=== PATIENT | female | born 1930 | race Caucasian/White ===

== ENCOUNTER 2021-04-21 13:06 | Emergency (ER) | payer OTHER ==
[2021-04-21 14:47] LABS: Absolute Lymphocytes (CBC) 0.7 K/uL (0.7-4.9); Basophils % 0.7 % (0-1.3); Hematocrit 43.9 % (36.0-45.0); Lymphocytes % 13.3 % (15.3-44.8); RBC Red Blood Cell Count 4.76 M/uL (3.86-4.86)
[2021-04-21 14:50] LABS: Protime INR 1.3
[2021-04-21 14:56] LABS: Potassium 3.5 mmol/L (3.5-5.1)
--- NOTE | 2021-04-21 15:08 | RAD REPORT ---
EXAM DESCRIPTION: CT - Head C Spine Cap W Con - 04/21/2021 2:46 pm CLINICAL HISTORY: Trauma, head and neck injury. Chest, abdomen and pelvis pain. fall, on eliquis, chest/abdomen/right hip pain, right weak COMPARISON: Abdomen Pelvis Wo Contrast dated 02/05/2019; Abdomen Pelvis Wo Contrast dated 07/18/20 16 TECHNIQUE: CT head without contrast. CT cervical spine without contrast with coronal and sagittal reformatted images. CT chest, abdomen and pelvis with IV contrast (approximately 100 mL nonionic IV contrast) with ferreira l and sagittal reformatted images of the spine. All CT scans are performed using dose optimization technique as appropriate and may include automated exposure control or mA/KV adjustment according to patient size. FINDINGS: CT HEAD WITHOUT CONTRAST: Multiple hemorrhagic lesions are present in the brain, in the posterior parietal region measuring up to 10 mm, right frontal region measuring 8 mm. Mild edema is seen spanning these lesions. No midline shifts. The paranasal sinuses and mastoids are clear. The calvarium is intact. CT CERVICAL SPINE WITHOUT CONTRAST: No fracture or subluxation. Minimal anterolisthesis of C4 on 5 and C5 on 6 is present. The prevertebr al soft tissues are normal in thickness. CT CHEST, ABDOMEN, PELVIS WITH CONTRAST: The lungs are mildly emphysematous. Areas of irregular scarring is present in both upper lobes24 x 20 mm mass is present in the medial aspect of the superior segment left lower lobe mild adjacent pleura l thickening.Mildly enlarged lymphadenopathy is present in the mediastinum, particularly the pretrach eal space measuring to 16 mm. The liver contains a small low-density lesion in the right lobe anteriorly measuring 6 mm, unchanged. No aggressive liver lesions seen. The spleen, pancreas are within normal limits. Bilateral adrenal m asses are present on the left measuring 18 mm and on the right measuring 20 mm. Atrophic right kidney . Large left renal cysts measuring 9 cm. Significant stool is present in the rectum. Moderate degenerative changes are present throughout the spine and both hips. No acute finding eviden t. IMPRESSION: 24 mm mass medial aspect of the superior segment of the left lower lobe highly suspiciou s for malignancy. Lymphadenopathy is present in pretracheal space. 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 No midline shift. Bilateral adrenal masses are present which could represent adenomas or metastatic disease. The appear mildly larger than on the 2016 comparative study.
--- NOTE | 2021-04-21 15:53 | RAD REPORT ---
EXAM DESCRIPTION: RAD - Femur Right - 04/21/2021 3:28 pm CLINICAL HISTORY: fall, weakness Trauma, pain COMPARISON: No comparisons FINDINGS: Diffuse osteopenia is seen. No acute fracture or dislocation seen. No aggressive marrow le kevin.
--- NOTE | 2021-04-21 16:13 | EDPHYS ---
Physician Documentation [facility] – [place], [place] Name: Sharon Blake Age: 89 yrs Sex: Female : 1930 Arrival Date: 04/21/2021 Time: 13:09 Bed 14 Private MD: ED Physician Ru Rocha HPI: 04/21 13:50 This 89 yrs old Female presents to ER via Unassigned with complaints of Pain rn With Urination - \\T\\ FELL ON RIGHT SIDE. 13:51 Details of fall: The patient fell from an upright position, while standing. Onset: The rn symptoms/episode began/occurred a few days ago. Associated injuries: The patient sustained injury to the chest, injury to the abdomen. Severity of symptoms: At their worst the symptoms were mild, in the emergency department the symptoms are unchanged. The patient has not experienced similar symptoms in the past. The patient has not recently seen a physician. Reports fell a few days ago onto right side of body, denies LOC, not sure if hit head, reports mild pain to chest/abdomen. Also reports since then noticed urinary dribbling which is not normal for her, as well as RLE weakness and "feels ". No fever. . Historical: - Allergies: 15:32 Codeine; tr6 - Home Meds: 15:33 Eliquis 2.5 mg oral tab 1 tab 2 times per day [Active]; Lasix 40 mg Oral tab 1 tab once tr6 daily [Active]; losartan 100 mg oral tab 1 tab once daily [Active]; - PMHx: 15:33 colon cancer; pulmonary embolism; Hypertensive disorder; pulmonary hypertension; tr6 - PSHx: 15:33 colon resection; tr6 - Immunization history:: Client reports receiving the 2nd dose of the Covid vaccine. - Social history:: Smoking status: Patient reports the use of cigarette tobacco products, unknown amount Patient/guardian denies using tobacco, the patient reports quitting approximately 30 years ago. - Family history:: not pertinent. - Hospitalizations: : No recent hospitalization is reported. ROS: 13:51 Constitutional: Negative for fever, chills, and weight loss, Eyes: Negative for injury, rn pain, redness, and discharge, ENT: Negative for injury, pain, and discharge, Neck: Negative for injury, pain, and swelling, Cardiovascular: Negative for palpitations, and edema, Respiratory: Negative for shortness of breath, cough, wheezing, and pleuritic chest pain, Abdomen/GI: Negative for nausea, vomiting, diarrhea, and constipation, Back: Negative for injury and pain, : Negative for bleeding, discharge, and swelling MS/Extremity: Negative for deformity, + RLE weakness Skin: Negative for injury, rash, and discoloration, Neuro: Negative for headache, numbness, tingling, and seizure. Exam: 13:51 Constitutional: This is a well developed, well nourished patient who is awake, alert, rn and in no acute distress. Head/Face: Normocephalic, atraumatic. Eyes: Periorbital areas with no swelling, redness, or edema. Neck: No midline cervical tenderness Chest/axilla: Normal chest wall appearance and motion. Nontender with no deformity. No lesions are appreciated. Cardiovascular: Regular rate and rhythm. No pulse deficits. Respiratory: No increased work of breathing, no retractions or nasal flaring. Abdomen/GI: soft, non-tender, no masses Back: No spinal tenderness. Skin: Warm, dry MS/ Extremity: Pulses equal, no cyanosis. Neuro: Awake and alert, GCS 15, oriented to person, place, time, and situation. Cranial nerves II-XII grossly intact. Motor strength 3+/5 RLE, 5/5 RUE/LUE/LLE. Sensation decreased RLE. Vital Signs: 15:29 BP 144 / 67; Pulse 76; Resp 18; Temp 97.9(O); Pulse Ox 100% ; tr6 17:07 BP 197 / 96; Pulse 80; Resp 20; Pulse Ox 98% on R/A; tr6 19:08 BP 200 / 95; Pulse 83; Resp 20; Pulse Ox 100% on R/A; tr6 MDM: 13:40 Patient medically screened. rn 14:40 ED course: Creatinine 1.4 for radiology, CT to give partial dose for imaging.. rn 16:09 Differential diagnosis: closed head injury, contusion, fracture, spinal hematoma, rn cancer, metastatic lesions, brain hemorrhage. Data reviewed: vital signs, nurses notes, lab test result(s), EKG, radiologic studies, CT scan, and as a result, I will admit patient. Counseling: I had a detailed discussion with the patient and/or guardian regarding: the historical points, exam findings, and any diagnostic results supporting the discharge/admit diagnosis, lab results, radiology results, the need for further work-up and treatment in the hospital, the need to transfer to another facility, for higher level of care, [facility] does not immediately have the required specialist. Response to treatment: the patient's symptoms have mildly improved after treatment, and as a result, I will admit patient. 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 . 16:38 ED course: Spoke with Dr. Franco, states no mass effect or midline shift, so ok to admit rn to floor with neuro consult. . 04/21 13:50 Order name: CBC with Diff; Complete Time: 15:47 rn 04/21 13:50 Order name: Basic Metabolic Panel; Complete Time: 15:47 rn 04/21 13:50 Order name: Protime (+inr); Complete Time: 15:47 rn 04/21 13:50 Order name: Ptt, Activated; Complete Time: 15:47 rn 04/21 13:50 Order name: Urine Microscopic Only; Complete Time: 18:13 rn 04/21 15:40 Order name: CREATININE WHOLE BLOOD; Complete Time: 15:47 EDAZ 04/21 13:50 Order name: CT Traumagram (Head C Spine CAP W Con); Complete Time: 15:47 rn 04/21 13:51 Order name: XRAY Femur RIGHT; Complete Time: 16:00 rn 04/21 14:28 Order name: Lower Extremity Arterial Bilat US; Complete Time: 18:13 rn 04/21 16:11 Order name: Type And Screen sv 04/21 16:11 Order name: Type and Screen EDMS 04/21 16:22 Order name: Urine Dipstick-Ancillary; Complete Time: 16:35 EDMS 04/21 16:58 Order name: COVID-19 : Document "Date of Symptom Onset" if Symptomatic. rn 04/21 13:50 Order name: IV Start; Complete Time: 18:17 rn 04/21 13:50 Order name: EKG; Complete Time: 14:05 rn 04/21 13:50 Order name: EKG - Nurse/Tech; Complete Time: 15:40 rn 04/21 13:50 Order name: Urine Dipstick-Ancillary (obtain specimen); Complete Time: 18:06 rn 04/21 16:11 Order name: Consent for Blood Transfusion; Complete Time: 18:06 sv Administered Medications: 16:22 Drug: Decadron - Dexamethasone 10 mg Route: IVP; Site: right antecubital; tr6 16:22 Drug: NS 0.9% 1000 ml Route: IV; Rate: 1000 ml; Site: right antecubital; tr6 19:07 Drug: Labetalol 5 mg Route: IVP; Site: right antecubital; tr6 Disposition Summary: 04/21/21 16:12 Transfer Ordered Transfer Location: [facility] rn Reason: Higher level of care rn Condition: Fair rn Problem: new rn Symptoms: have improved rn Accepting Physician: (04/21/21 19:10) tr6 Diagnosis - Weakness rn - Dehydration rn - Cerebral edema rn - Nontraumatic intracerebral hemorrhage, multiple localized - With masses rn Forms: - Medication Reconciliation Form rn - SBAR form rn Signatures: Dispatcher [employer] Lisandra Chavis RN RN sv Nieto, Roman, MD MD rn Ramnanan, Tiffany, RN RN tr6 Corrections: (The following items were deleted from the chart) 13:54 13:51 Constitutional: Negative for fever, chills, and weight loss, Eyes: Negative for rn injury, pain, redness, and discharge, ENT: Negative for injury, pain, and discharge, Neck: Negative for injury, pain, and swelling, Cardiovascular: Negative for palpitations, and edema, Respiratory: Negative for shortness of breath, cough, wheezing, and pleuritic chest pain, Abdomen/GI: Negative for nausea, vomiting, diarrhea, and constipation, Back: Negative for injury and pain, MS/Extremity: Negative for deformity, + RLE weakness Skin: Negative for injury, rash, and discoloration, Neuro: Negative for headache, numbness, tingling, and seizure, rn 15:37 15:32 Allergies: No Known Allergies; tr6 tr6 19:10 16:12 rn tr6
--- NOTE | 2021-04-21 16:13 | ER ---
Nurse's Notes [facility] Name: Sharon Blake Age: 89 yrs Sex: Female : 1930 Arrival Date: 04/21/2021 Time: 13:09 Bed 14 Private MD: Diagnosis: Weakness;Dehydration;Cerebral edema;Nontraumatic intracerebral hemorrhage, multiple localized-With masses Presentation: 04/21 15:29 Chief complaint: Patient states: fall on Sunday striking right side. pt unsure if she tr6 hit her head, but denies LOC. pt comes in today with c/o right leg weakness and pain. pt unable to move right leg at all. c/o moments of urinary incontinence since fall. also pt has noticed that b/l feet turn purple while sitting upright. pt states this is not her normal. this has happened since the fall. Coronavirus screen: At this time, unable to obtain information related to travel outside the [place] Ebola Screen: No symptoms or risks identified at this time. Initial Sepsis Screen: Does the patient meet any 2 criteria? No. Patient's initial sepsis screen is negative. Does the patient have a suspected source of infection? No. Patient's initial sepsis screen is negative. Risk Assessment: Do you want to hurt yourself or someone else? Patient reports no desire to harm self or others. 15:29 Method Of Arrival: Wheelchair tr6 15:29 Acuity: MAY 3 tr6 Historical: - Allergies: 15:32 Codeine; tr6 - Home Meds: 15:33 Eliquis 2.5 mg oral tab 1 tab 2 times per day [Active]; Lasix 40 mg Oral tab 1 tab once tr6 daily [Active]; losartan 100 mg oral tab 1 tab once daily [Active]; - PMHx: 15:33 colon cancer; pulmonary embolism; Hypertensive disorder; pulmonary hypertension; tr6 - PSHx: 15:33 colon resection; tr6 - Immunization history:: Client reports receiving the 2nd dose of the Covid vaccine. - Social history:: Smoking status: Patient reports the use of cigarette tobacco products, unknown amount Patient/guardian denies using tobacco, the patient reports quitting approximately 30 years ago. - Family history:: not pertinent. - Hospitalizations: : No recent hospitalization is reported. Screenin:56 Abuse screen: Denies threats or abuse. Denies injuries from another. Nutritional tr6 screening: No deficits noted. Tuberculosis screening: No symptoms or risk factors identified. Fall Risk Fall in past 12 months (25 points). Assessment: 13:53 General: Appears uncomfortable, Behavior is calm, cooperative, appropriate for age. tr6 Pain: Complains of pain in right leg pain and weakness, right rib pain, and right hip/ lower back pain. Respiratory: No deficits noted. GI: No deficits noted. : Reports incontinence. EENT: No deficits noted. Derm: Skin is fragile, is thin, Skin is dry, Skin is b/l feet are purple on initial assessment as pt is sitting upright. Musculoskeletal: Reports weakness in right leg since Sunday . 15:39 Reassessment: on reassessment pts feet are no longer purple and have weak pulses. tr6 16:01 Reassessment: MD Rocha at bedside to discuss POC. tr6 16:06 Reassessment: Initiated transfer with [facility] CATHERINE Mascorro craft coordinator. 17:31 Reassessment: report given to Devi ALEXANDER. tr6 18:18 Reassessment: MD Rocha at bedside. tr6 19:09 Reassessment: pt given FFP. during pt stay pts BP has gradually increased. Pt given 5mg tr6 of IVP labatelol. pt tolerated well. report given to [facility]. pts daughter at bedside while pt is being transferred. all pt belongngings sent with pt. Vital Signs: 15:29 BP 144 / 67; Pulse 76; Resp 18; Temp 97.9(O); Pulse Ox 100% ; tr6 17:07 BP 197 / 96; Pulse 80; Resp 20; Pulse Ox 98% on R/A; tr6 19:08 BP 200 / 95; Pulse 83; Resp 20; Pulse Ox 100% on R/A; tr6 ED Course: 13:09 Patient arrived in ED. wm 13:40 Ru Rocha MD is Attending Physician. rn 13:53 Ashlyn Crowley, CATHERINE is Primary Nurse. tr6 14:45 CT Traumagram (Head C Spine CAP W Con) In Process Unspecified. EDMS 15:32 Triage completed. tr6 15:40 XRAY Femur RIGHT In Process Unspecified. EDMS 15:40 Arm band placed on right wrist. EKG completed in triage. Results shown to MD. tr6 15:41 Patient has correct armband on for positive identification. Bed in low position. Call tr6 light in reach. Side rails up X2. Pulse ox on. NIBP on. 15:41 No provider procedures requiring assistance completed. tr6 17:40 Lower Extremity Arterial Bilat US In Process Unspecified. EDMS 19:08 Patient transferred, IV remains in place. tr6 Administered Medications: 16:22 Drug: Decadron - Dexamethasone 10 mg Route: IVP; Site: right antecubital; tr6 16:22 Drug: NS 0.9% 1000 ml Route: IV; Rate: 1000 ml; Site: right antecubital; tr6 19:07 Drug: Labetalol 5 mg Route: IVP; Site: right antecubital; tr6 Output: 17:04 Urine: 1000ml (Straight Cath); Total: 1000ml. tr6 Outcome: 16:12 ER care complete, transfer ordered by . rn 19:08 Transferred by ground EMS to [facility]. tr6 19:08 Condition: stable 19:08 Instructed on the need for transfer. 19:10 Patient left the ED. tr6 Signatures: Dispatcher [employer] EDMS Ru Rocha MD MD rn Smirch, Shelby, RN RN ss Ramnanan, Tiffany, RN RN tr6 Evelyn Lutz Corrections: (The following items were deleted from the chart) 15:37 15:32 Allergies: No Known Allergies; tr6 tr6
[2021-04-21 16:22] LABS: Urine Blood 1+ (Negative); Urine Glucose Negative (Negative); Urine Protein Negative (Negative); Urine Specific Gravity 1.015 (1.005-1.030); Urine pH 6.5 (5.0-7.0)
[2021-04-21] MEDS ORDERED: dexAMETHasone 10 MG/ML VIAL ONE (16:31)
[2021-04-21] MEDS ORDERED: NA CHLORIDE 0.9% 1,000 ML ONE (16:31)
[2021-04-21 17:17] LABS: Urine Bacteria <20 /HPF (<20)
--- NOTE | 2021-04-21 18:04 | RAD REPORT ---
EXAM DESCRIPTION: US - Lower Extremity Arterial Bilat - 04/21/2021 5:41 pm CLINICAL HISTORY: discoloration;Pain Leg pain COMPARISON: No comparisons TECHNIQUE: Bilateral lower extremity arterial Doppler examination was performed with waveform tracin g and velocity measurements. FINDINGS: Moderate multifocal, multi segmental atheromatous plaquing is seen bilaterally. Right lower extremity arterial system is triphasic and biphasic. Right posterior tibial artery is mon ophasic. Left lower extremity arterial system is biphasic to the level of the popliteal artery. Left posterior tibial artery and dorsalis pedis arteries are monophasic. No complete occlusion evident. IMPRESSION: [id number] distal peripheral vascular disease is seen bilaterally.
[2021-04-21] MEDS ORDERED: LABETALOL 20 MG/4ML SYRINGE IV ONE (19:11)
[2021-04-21 19:36] VITALS: TEMP 97.9
[2021-04-21 19:40] VITALS: BP 200/95; O2SAT 100
--- NOTE | 2021-04-22 07:45 | EKG ---
Test Date: 2021-04-21 Test Time: 14:20:32 Pie Maker Machine: TRUMAN MEASUREMENT RESULTS: Intervals: Rate: 82 NH: QRSD: 104 QT: 402 QTc: 469 [place]: P: NH: QRS: 78 T: 55 INTERPRETIVE STATEMENTS: Atrial fibrillation with premature ventricular or aberrantly conducted complexes Minimal voltage criteria for LVH, may be normal variant Abnormal ECG Compared to ECG 10/07/2014 06:46:10 Ventricular premature complex(es) now present Left ventricular hypertrophy now present Left bundle-branch block no longer present ST (T wave) deviation no longer present Electronically Signed On 04-22-21 07:42:42 CDT by Joey Snider
== END 2021-04-21 19:10 | disposition short-term general hospital (02) ==
LOC: ER 13:06
PROC: 30233K1 Transfusion of Nonautologous Frozen Plasma into Peripheral Vein, Percutaneous Approach (ICD-10-PCS; principal; 2021-04-21)
DX: I61.9 Nontraumatic intracerebral hemorrhage, unspecified (principal); G93.6 Cerebral edema; E86.0 Dehydration; G93.89 Other specified disorders of brain; I10 Essential (primary) hypertension; Z79.01 Long term (current) use of anticoagulants; Z88.5 Allergy status to narcotic agent; Z85.038 Personal history of other malignant neoplasm of large intestine; Z86.711 Personal history of pulmonary embolism
CPT/HCPCS: 93005; 85025; 80048; 36415; 86900; 86850; 85610; 82565; 86901; 85730; 86927; 70450; 72125; 71260; 74177; 73552; 93925; 96375; 96374; 99285; 36430; Q9967; J1100; P9017; J7030; 81003; 81015